=== PATIENT | female | born 1990 | race Caucasian/White ===

== ENCOUNTER 2018-11-04 12:56 | Emergency (ER) | payer OTHER, SELFPAY ==
[2018-11-04 12:59] VITALS: BP 126/80; PULSE 73; RESP 14; TEMP 36.6; O2SAT 99
[2018-11-04 14:38] VITALS: BP 112/69; PULSE 64; RESP 14; O2SAT 100
--- NOTE | 2018-11-04 14:48 | DI.US.S_ITS ---
PROCEDURE: US RENAL COMPLETE INDICATIONS: BILATERAL FLANK PAIN TECHNIQUE: Real-time scanning was performed of the kidneys and bladder, with image documentation. COMPARISON: None. FINDINGS: Kidneys: Kidneys are normal in size. Right kidney measures 10.8 cm long; left kidney measures 9.4 cm long. Right renal cortical thickness is 1.9 cm; left renal cortical thickness is 1.8 cm. Renal cortical echotexture is normal. No hydronephrosis or shadowing nephrolithiasis. No suspicious solid mass lesions. Bladder: Pre-void bladder volume is 405 mL. Post-void residual is 0 mL. Pre-void images demonstrate no intraluminal masses or stones. On pre-void images, the bilateral ureteral jets are noted with color Doppler interrogation. (Of note, ureteral jets may not be detectable in up to 25% of cases due to insufficient differences in specific gravity between ureteral and bladder urine). Miscellaneous: No free pelvic fluid. IMPRESSION: Unremarkable renal sonogram. No hydronephrosis or shadowing renal calculi. The need for further evaluation utilizing noncontrast CT of the abdomen and pelvis may determine clinically. Dictated by: Zbigniew Lee M.D. on 11/04/2018 at 14:51 Approved by: Zbigniew Lee M.D. on 11/04/2018 at 14:52
[2018-11-04 15:05] LABS: Add Manual Diff / Slide Review NO; Basophils Absolute Auto 100 /uL (0-100); Basophils Percent Auto 0.8 % (0-2); Eosinophils Absolute Auto 100 /uL (0-450); Hematocrit 37.8 % (36-46); Hemoglobin 12.6 g/dL (12.0-16.0); Lymphocytes Absolute Auto 2100 /uL (1100-4500); Lymphocytes Percent Auto 25.4 % (25-40); Mean Corpuscular HGB Conc 33.3 % (30-36); Monocytes Absolute Auto 700 /uL (0-900); Monocytes Percent Auto 8.1 % (3-14); Neutrophils Absolute Auto 5400 /uL (1500-7000); Neutrophils Percent Auto 64.7 % (50-75); Platelet Count 251 X10^3/uL (150-400); Red Blood Cell Count 4.07 X10^6/uL (4.0-5.2); Red Cell Distribution Width 12.6 % (11.6-14.8); White Blood Cell Count 8.3 X10^3/uL (4.5-11.0)
[2018-11-04] MEDS: SODIUM CHLORIDE 0.9% 1,000 ML 1000 ML IV (15:05)
[2018-11-04] MEDS: KETOROLAC 60 MG/2 ML VIAL 30 MG IV (15:05)
--- NOTE | 2018-11-04 15:16 | PC.NURSE ---
Renal ultrasound complete
[2018-11-04 15:24] LABS: BUN Creatinine Ratio 13.3 (6-22); Blood Urea Nitrogen 8 mg/dL (7-17); Calcium 9.2 mg/dL (8.4-10.2); Carbon Dioxide 26 mmol/L (22-32); Chloride 103 mmol/L (98-107); Estimated Glomerular Filt Rate > 60.0 mL/min (>60); Glucose 84 mg/dL (70-100); HEMOLYSIS < 15 (0-50); Potassium 3.9 mmol/L (3.4-5.1); Sodium 137 mmol/L (137-145)
--- NOTE | 2018-11-04 15:37 | ED.ABDPAIN ---
HPI - Abdominal Pain <LESLI Freedman - Last Filed: 11/04/18 21:22> General Chief Complaint: Abdominal Pain Stated Complaint: kidney pain Time Seen by Provider: 11/04/18 14:48 Source: patient Mode of arrival: ambulatory Limitations: no limitations History of Present Illness HPI narrative: Healthy 28-year-old female that is a nonsmoker here for complaint of having flank pain for the last couple of months. She has been seen for this at [facility] a few times and has had 2 CTs over the last month that did show that she had some nonobstructing kidney stones and no other findings. She denies any urinary symptoms. she denies any fevers or chills. She does not have any abdominal pain at this time frame. Although she does state that she has had abdominal pain on and off over the past couple months as well. She is currently waiting a urology referral for further evaluation. She denies any trauma to the abdomen. No other concerns or complaints. she states that she is currently on her menstrual cycle that just started today. Last bowel movement was yesterday and was unremarkable. no other concerns or complaints at this time frame. No stressors or relievers of her symptoms. MD complaint: flank pain Related Data Home Medications Medication Instructions Recorded Confirmed mirtazapine [Remeron] 15 mg PO DAILY 11/04/18 11/04/18 Allergies Allergy/AdvReac Type Severity Reaction Status Date / Time No Known Drug Allergies Allergy Verified 11/04/18 13:03 Review of Systems <LESLI Freedman - Last Filed: 11/04/18 21:22> Constitutional Denies chills, Denies fever(s), Denies lethargy and Denies weakness Eyes Denies change in vision, Denies eye discharge, Denies irritation and Denies loss of vision ENT Ears, Nose, Mouth, and Throat: Denies change in voice, Denies neck pain and Denies sore throat Cardiovascular Denies chest pain, Denies irregular heart rhythm, Denies lightheadedness, Denies palpitations, Denies dyspnea, Denies dyspnea on exertion and Denies orthopnea Respiratory Denies cough, Denies dyspnea, Denies dyspnea on exertion and Denies wheezing Gastrointestinal Gastrointestinal: Denies change in bowel habits, Denies diarrhea, Denies nausea and Denies vomiting Genitourinary Denies hematuria, Reports flank pain, Denies urinary incontinence and Denies urinary urgency Musculoskeletal Denies neck pain Integumentary/Breasts Denies pruritus, Denies erythema, Denies rash and Denies wounds Neurologic Denies confusion, Denies loss of vision and Denies weakness Psychiatric Denies anxiety, Denies confusion, Denies depression, Denies homicidal ideation and Denies suicidal ideation Endocrine Denies palpitations Hematologic/Lymphatic Denies easy bruising Allergic/Immunologic Denies wheezing PFSH <LESLI Freedman - Last Filed: 11/04/18 21:22> Social History Smoking Status: Never smoker Social History Smoking Status: Never smoker Exam <LESLI Freedman - Last Filed: 11/04/18 21:22> Initial Vital Signs Initial Vital Signs: Vital Signs Temperature 97.9 F 11/04/18 12:59 Pulse Rate 73 11/04/18 12:59 Respiratory Rate 14 11/04/18 12:59 Blood Pressure 126/80 11/04/18 12:59 Pulse Oximetry 99 11/04/18 12:59 Const General: cooperative and well developed Nutritional Appearance: well nourished Orientation: alert, awake, oriented x3 and not confused HENMT Mouth: oral mucosae normal and moist mucous membranes Eyes Conjunctivae: conjunctivae normal Sclera: sclerae normal Pupils: PERRL EOM: EOM intact bilaterally Resp Effort & Inspection: normal respiratory effort, able to speak in complete sentences, no respiratory distress and no use of accessory muscles Auscultation: clear to auscultation bilaterally, no rales, no rhonchi and no wheezes Cardio Rate: regular rate Rhythm: regular rhythm Heart Sounds: no click, no gallops, no murmurs and no rubs Pulses: normal peripheral pulses GI Inspection: non-distended Palpation: soft, no hepatosplenomegaly, No guarding, No pulsatile mass and No tender Auscultation: normal bowel sounds General: No CVA tenderness Neuro General: alert, oriented x3, gait normal and no focal motor deficits Speech: speech normal <Erin Rojas DO - Last Filed: 11/07/18 07:19> Initial Vital Signs Initial Vital Signs: Vital Signs Temperature 97.9 F 11/04/18 12:59 Pulse Rate 73 11/04/18 12:59 Respiratory Rate 14 11/04/18 12:59 Blood Pressure 126/80 11/04/18 12:59 Pulse Oximetry 99 11/04/18 12:59 Course <LESLI Freedman - Last Filed: 11/04/18 21:22> Orders Ordered: Discontinued Medications Sodium Chloride (Normal Saline 0.9%) 1,000 mls @ 1,000 mls/hr IV BOLUS ONE Stop: 11/04/18 15:47 Last Infusion: 11/04/18 16:05 Dose: 0 mls/hr Admin: 11/04/18 15:05 Dose: 1,000 mls/hr Ketorolac Tromethamine (Toradol) 30 mg IV NOW ONE Stop: 11/04/18 14:49 Last Admin: 11/04/18 15:05 Dose: 30 mg Ondansetron HCl (Zofran) 4 mg IV NOW ONE Stop: 11/04/18 14:49 Last Admin: 11/04/18 14:55 Dose: Not Given Vital Signs - 8 hr 11/04/18 14:38 11/04/18 16:05 Pulse Rate 64 66 Respiratory Rate 14 14 Blood Pressure [Left Arm] 112/69 121/74 Pulse Oximetry 100 100 <Erin Rojas DO - Last Filed: 11/07/18 07:19> Orders Ordered: Discontinued Medications Sodium Chloride (Normal Saline 0.9%) 1,000 mls @ 1,000 mls/hr IV BOLUS ONE Stop: 11/04/18 15:47 Last Infusion: 11/04/18 16:05 Dose: 0 mls/hr Admin: 11/04/18 15:05 Dose: 1,000 mls/hr Ketorolac Tromethamine (Toradol) 30 mg IV NOW ONE Stop: 11/04/18 14:49 Last Admin: 11/04/18 15:05 Dose: 30 mg Ondansetron HCl (Zofran) 4 mg IV NOW ONE Stop: 11/04/18 14:49 Last Admin: 11/04/18 14:55 Dose: Not Given Vital Signs - 8 hr 11/04/18 14:38 11/04/18 16:05 Pulse Rate 64 66 Respiratory Rate 14 14 Blood Pressure [Left Arm] 112/69 121/74 Pulse Oximetry 100 100 MDM - Abdominal Pain <LESLI Freedman - Last Filed: 11/04/18 21:22> Lab Data Result diagrams: 11/04/18 14:55 11/04/18 14:55 Lab Results 11/04/18 11/04/18 Range/Units 14:55 14:55 WBC 8.3 (4.5-11.0) X10^3/uL RBC 4.07 (4.0-5.2) X10^6/uL Hgb 12.6 (12.0-16.0) g/dL Hct 37.8 (36-46) % MCV 93.0 (80-100) fL MCH 31.0 (26-34) PG MCHC 33.3 (30-36) % RDW 12.6 (11.6-14.8) % Plt Count 251 (150-400) X10^3/uL Neut % (Auto) 64.7 (50-75) % Lymph % (Auto) 25.4 (25-40) % Butts % (Auto) 8.1 (3-14) % Eos % (Auto) 1.0 L (2-4) % Baso % (Auto) 0.8 (0-2) % Neut # (Auto) 5400 (0720-0804) /uL Lymph # (Auto) 2100 (8319-4774) /uL Butts # (Auto) 700 (0-900) /uL Eos # (Auto) 100 (0-450) /uL Baso # (Auto) 100 (0-100) /uL Sodium 137 (137-145) mmol/L Potassium 3.9 (3.4-5.1) mmol/L Chloride 103 (98-107) mmol/L Carbon Dioxide 26 (22-32) mmol/L BUN 8 (7-17) mg/dL Creatinine 0.60 (0.52-1.04) mg/dL Estimated GFR > 60.0 (>60) mL/min BUN/Creatinine Ratio 13.3 (6-22) Glucose 84 (70-100) mg/dL Calcium 9.2 (8.4-10.2) mg/dL Point of care testing: Point of Care Testing Test Results Negative Urine Dip Bedside Urine Glucose Negative Bedside Urine Bilirubin - Negative Bedside Urine Ketone - Negative Urine Specific [place] 1.020 Bedside Urine Occult Blood + Bedside Urine pH 5.5 Bedside Urine Protein - Negative Bedside Urine Urobilinogen - Negative Bedside Urine Nitrite - Negative Bedside Urine Leukocytes - Negative Esterase Imaging Data US - abdomen: Radiologist's impression: [address] [id number] Ultrasound Report Signed Patient: Martina Burrell [facility]#: [id number] : 1990Acct:[id number] Age/Sex: 28 / FDate of Service: 11/04/18 Loc: ED Accession Number: [id number] Procedure: US renal complete Ordering Provider: Erin oRjas D.O. PROCEDURE: US RENAL COMPLETE INDICATIONS: BILATERAL FLANK PAIN TECHNIQUE: Real-time scanning was performed of the kidneys and bladder, with image documentation. COMPARISON: None. FINDINGS: Kidneys: Kidneys are normal in size. Right kidney measures 10.8 cm long; left kidney measures 9.4 cm long. Right renal cortical thickness is 1.9 cm; left renal cortical thickness is 1.8 cm. Renal cortical echotexture is normal. No hydronephrosis or shadowing nephrolithiasis. No suspicious solid mass lesions. Bladder: Pre-void bladder volume is 405 mL. Post-void residual is 0 mL. Pre-void images demonstrate no intraluminal masses or stones. On pre-void images, the bilateral ureteral jets are noted with color Doppler interrogation. (Of note, ureteral jets may not be detectable in up to 25% of cases due to insufficient differences in specific gravity between ureteral and bladder urine). Miscellaneous: No free pelvic fluid. IMPRESSION: Unremarkable renal sonogram. No hydronephrosis or shadowing renal calculi. The need for further evaluation utilizing noncontrast CT of the abdomen and pelvis may determine clinically. Dictated by: Zbigniew Lee M.D. on 11/04/2018 at 14:51 Approved by: Zbigniew Lee M.D. on 11/04/2018 at 14:52 [facility] Narrative Medical decision making narrative: CBC was obtained was unremarkable. chemistry panel was obtained was unremarkable. renal ultrasound was obtained and was was negative for hydronephrosis no renal calculi are seen. Urinalysis was negative for urinary tract infection and also for . Urine does show some occult blood but most likely is due to her current menstrual cycle. Will have her follow up with her referral to Urology follow-up with primary care provider next few days. If she is unable to obtain referral to Urology she may contact the [facility] urology for referral. For any worsening symptoms return to the emergency room. Differential for discomfort is a muscle skeletal pain. <Erin Cyndy Rojas, DO - Last Filed: 11/07/18 07:19> Lab Data Lab Results 11/04/18 11/04/18 Range/Units 14:55 14:55 WBC 8.3 (4.5-11.0) X10^3/uL RBC 4.07 (4.0-5.2) X10^6/uL Hgb 12.6 (12.0-16.0) g/dL Hct 37.8 (36-46) % MCV 93.0 (80-100) fL MCH 31.0 (26-34) PG MCHC 33.3 (30-36) % RDW 12.6 (11.6-14.8) % Plt Count 251 (150-400) X10^3/uL Neut % (Auto) 64.7 (50-75) % Lymph % (Auto) 25.4 (25-40) % Butts % (Auto) 8.1 (3-14) % Eos % (Auto) 1.0 L (2-4) % Baso % (Auto) 0.8 (0-2) % Neut # (Auto) 5400 (7562-8664) /uL Lymph # (Auto) 2100 (3065-4500) /uL Butts # (Auto) 700 (0-900) /uL Eos # (Auto) 100 (0-450) /uL Baso # (Auto) 100 (0-100) /uL Sodium 137 (137-145) mmol/L Potassium 3.9 (3.4-5.1) mmol/L Chloride 103 (98-107) mmol/L Carbon Dioxide 26 (22-32) mmol/L BUN 8 (7-17) mg/dL Creatinine 0.60 (0.52-1.04) mg/dL Estimated GFR > 60.0 (>60) mL/min BUN/Creatinine Ratio 13.3 (6-22) Glucose 84 (70-100) mg/dL Calcium 9.2 (8.4-10.2) mg/dL Point of care testing: Point of Care Testing Test Results Negative Urine Dip Bedside Urine Glucose Negative Bedside Urine Bilirubin - Negative Bedside Urine Ketone - Negative Urine Specific [place] 1.020 Bedside Urine Occult Blood + Bedside Urine pH 5.5 Bedside Urine Protein - Negative Bedside Urine Urobilinogen - Negative Bedside Urine Nitrite - Negative Bedside Urine Leukocytes - Negative Esterase Discharge Plan Departure Patient Disposition: Home Clinical Impression: Bilateral flank pain Discharge Date/Time: 11/04/18 16:40 Interventions: ED Discharge Assessment Last Done: 11/04/18 16:40 Instructions: DI for Flank Pain Activity Restrictions/Additional Instructions: Laboratory results today were unremarkable. ultrasound was negative for signs of a kidney stone. Urinalysis was negative for urinary tract infection. Follow up with Urology as scheduled. If having difficulty in followup Urology may contact [facility] urology to set up appointment. Follow up with primary care provider. Use [id number] Tylenol as needed for any discomfort. Return emergency room for any worsening symptoms. Prescriptions: No Action mirtazapine [Remeron] 15 mg Tablet 15 mg PO DAILY RF: 0 Referrals: [facility] [Provider Group] <Erin Rojas DO - Last Filed: 11/07/18 07:19> Cosign ED Attending Cosignature Attestation: I was immediately available in the department for consultation. This documentation has been reviewed and I agree with assessment and plan. Supervised by Erin Rojas DO
[2018-11-04 16:05] VITALS: BP 121/74; PULSE 66; RESP 14; O2SAT 100
--- NOTE | 2018-11-04 16:30 | ED_ITS ---
HPI - Abdominal Pain <LESLI Freedman - Last Filed: 11/04/18 21:22> General Chief Complaint: Abdominal Pain Stated Complaint: kidney pain Time Seen by Provider: 11/04/18 14:48 Source: patient Mode of arrival: ambulatory Limitations: no limitations History of Present Illness HPI narrative: Healthy 28-year-old female that is a nonsmoker here for complaint of having flank pain for the last couple of months. She has been seen for this at [facility] a few times and has had 2 CTs over the last month that did show that she had some nonobstructing kidney stones and no other findings. She denies any urinary symptoms. she denies any fevers or chills. She does not have any abdominal pain at this time frame. Although she does state that she has had abdominal pain on and off over the past couple months as well. She is currently waiting a urology referral for further evaluation. She denies any trauma to the abdomen. No other concerns or complaints. she states that she is currently on her menstrual cycle that just started today. Last bowel movement was yesterday and was unremarkable. no other concerns or complaints at this time frame. No stressors or relievers of her symptoms. MD complaint: flank pain Related Data Home Medications Medication Instructions Recorded Confirmed mirtazapine [Remeron] 15 mg PO DAILY 11/04/18 11/04/18 Allergies Allergy/AdvReac Type Severity Reaction Status Date / Time No Known Drug Allergies Allergy Verified 11/04/18 13:03 Review of Systems <LESLI Freedman - Last Filed: 11/04/18 21:22> Constitutional Denies chills, Denies fever(s), Denies lethargy and Denies weakness Eyes Denies change in vision, Denies eye discharge, Denies irritation and Denies loss of vision ENT Ears, Nose, Mouth, and Throat: Denies change in voice, Denies neck pain and Denies sore throat Cardiovascular Denies chest pain, Denies irregular heart rhythm, Denies lightheadedness, Denies palpitations, Denies dyspnea, Denies dyspnea on exertion and Denies orthopnea Respiratory Denies cough, Denies dyspnea, Denies dyspnea on exertion and Denies wheezing Gastrointestinal Gastrointestinal: Denies change in bowel habits, Denies diarrhea, Denies nausea and Denies vomiting Genitourinary Denies hematuria, Reports flank pain, Denies urinary incontinence and Denies urinary urgency Musculoskeletal Denies neck pain Integumentary/Breasts Denies pruritus, Denies erythema, Denies rash and Denies wounds Neurologic Denies confusion, Denies loss of vision and Denies weakness Psychiatric Denies anxiety, Denies confusion, Denies depression, Denies homicidal ideation and Denies suicidal ideation Endocrine Denies palpitations Hematologic/Lymphatic Denies easy bruising Allergic/Immunologic Denies wheezing PFSH <LESLI Freedman - Last Filed: 11/04/18 21:22> Social History Smoking Status: Never smoker Social History Smoking Status: Never smoker Exam <LESLI Freedman - Last Filed: 11/04/18 21:22> Initial Vital Signs Initial Vital Signs: Vital Signs Temperature 97.9 F 11/04/18 12:59 Pulse Rate 73 11/04/18 12:59 Respiratory Rate 14 11/04/18 12:59 Blood Pressure 126/80 11/04/18 12:59 Pulse Oximetry 99 11/04/18 12:59 Const General: cooperative and well developed Nutritional Appearance: well nourished Orientation: alert, awake, oriented x3 and not confused HENMT Mouth: oral mucosae normal and moist mucous membranes Eyes Conjunctivae: conjunctivae normal Sclera: sclerae normal Pupils: PERRL EOM: EOM intact bilaterally Resp Effort & Inspection: normal respiratory effort, able to speak in complete sentences, no respiratory distress and no use of accessory muscles Auscultation: clear to auscultation bilaterally, no rales, no rhonchi and no wheezes Cardio Rate: regular rate Rhythm: regular rhythm Heart Sounds: no click, no gallops, no murmurs and no rubs Pulses: normal peripheral pulses GI Inspection: non-distended Palpation: soft, no hepatosplenomegaly, No guarding, No pulsatile mass and No tender Auscultation: normal bowel sounds General: No CVA tenderness Neuro General: alert, oriented x3, gait normal and no focal motor deficits Speech: speech normal <Erin Rojas DO - Last Filed: 11/07/18 07:19> Initial Vital Signs Initial Vital Signs: Vital Signs Temperature 97.9 F 11/04/18 12:59 Pulse Rate 73 11/04/18 12:59 Respiratory Rate 14 11/04/18 12:59 Blood Pressure 126/80 11/04/18 12:59 Pulse Oximetry 99 11/04/18 12:59 Course <LESLI Freedman - Last Filed: 11/04/18 21:22> Orders Ordered: Discontinued Medications Sodium Chloride (Normal Saline 0.9%) 1,000 mls @ 1,000 mls/hr IV BOLUS ONE Stop: 11/04/18 15:47 Last Infusion: 11/04/18 16:05 Dose: 0 mls/hr Admin: 11/04/18 15:05 Dose: 1,000 mls/hr Ketorolac Tromethamine (Toradol) 30 mg IV NOW ONE Stop: 11/04/18 14:49 Last Admin: 11/04/18 15:05 Dose: 30 mg Ondansetron HCl (Zofran) 4 mg IV NOW ONE Stop: 11/04/18 14:49 Last Admin: 11/04/18 14:55 Dose: Not Given Vital Signs - 8 hr 11/04/18 14:38 11/04/18 16:05 Pulse Rate 64 66 Respiratory Rate 14 14 Blood Pressure [Left Arm] 112/69 121/74 Pulse Oximetry 100 100 <Erin Rojas DO - Last Filed: 11/07/18 07:19> Orders Ordered: Discontinued Medications Sodium Chloride (Normal Saline 0.9%) 1,000 mls @ 1,000 mls/hr IV BOLUS ONE Stop: 11/04/18 15:47 Last Infusion: 11/04/18 16:05 Dose: 0 mls/hr Admin: 11/04/18 15:05 Dose: 1,000 mls/hr Ketorolac Tromethamine (Toradol) 30 mg IV NOW ONE Stop: 11/04/18 14:49 Last Admin: 11/04/18 15:05 Dose: 30 mg Ondansetron HCl (Zofran) 4 mg IV NOW ONE Stop: 11/04/18 14:49 Last Admin: 11/04/18 14:55 Dose: Not Given Vital Signs - 8 hr 11/04/18 14:38 11/04/18 16:05 Pulse Rate 64 66 Respiratory Rate 14 14 Blood Pressure [Left Arm] 112/69 121/74 Pulse Oximetry 100 100 MDM - Abdominal Pain <LESLI Freedman - Last Filed: 11/04/18 21:22> Lab Data Result diagrams: 11/04/18 14:55 11/04/18 14:55 Lab Results 11/04/18 11/04/18 Range/Units 14:55 14:55 WBC 8.3 (4.5-11.0) X10^3/uL RBC 4.07 (4.0-5.2) X10^6/uL Hgb 12.6 (12.0-16.0) g/dL Hct 37.8 (36-46) % MCV 93.0 (80-100) fL MCH 31.0 (26-34) PG MCHC 33.3 (30-36) % RDW 12.6 (11.6-14.8) % Plt Count 251 (150-400) X10^3/uL Neut % (Auto) 64.7 (50-75) % Lymph % (Auto) 25.4 (25-40) % [place] % (Auto) 8.1 (3-14) % Eos % (Auto) 1.0 L (2-4) % Baso % (Auto) 0.8 (0-2) % Neut # (Auto) 5400 (5636-2891) /uL Lymph # (Auto) 2100 (3202-3328) /uL Titus # (Auto) 700 (0-900) /uL Eos # (Auto) 100 (0-450) /uL Baso # (Auto) 100 (0-100) /uL Sodium 137 (137-145) mmol/L Potassium 3.9 (3.4-5.1) mmol/L Chloride 103 (98-107) mmol/L Carbon Dioxide 26 (22-32) mmol/L BUN 8 (7-17) mg/dL Creatinine 0.60 (0.52-1.04) mg/dL Estimated GFR > 60.0 (>60) mL/min BUN/Creatinine Ratio 13.3 (6-22) Glucose 84 (70-100) mg/dL Calcium 9.2 (8.4-10.2) mg/dL Point of care testing: Point of Care Testing Test Results Negative Urine Dip Bedside Urine Glucose Negative Bedside Urine Bilirubin - Negative Bedside Urine Ketone - Negative Urine Specific [place] 1.020 Bedside Urine Occult Blood + Bedside Urine pH 5.5 Bedside Urine Protein - Negative Bedside Urine Urobilinogen - Negative Bedside Urine Nitrite - Negative Bedside Urine Leukocytes - Negative Esterase Imaging Data US - abdomen: Radiologist's impression: [address] [address] Ultrasound Report Signed Patient: Martina Burrell [facility]#: [id number] : 1990Acct:[id number] Age/Sex: 28 / FDate of Service: 11/04/18 Loc: ED Accession Number: [id number] Procedure: US renal complete Ordering Provider: Erin Rojas D.O. PROCEDURE: US RENAL COMPLETE INDICATIONS: BILATERAL FLANK PAIN TECHNIQUE: Real-time scanning was performed of the kidneys and bladder, with image documentation. COMPARISON: None. FINDINGS: Kidneys: Kidneys are normal in size. Right kidney measures 10.8 cm long; left kidney measures 9.4 cm long. Right renal cortical thickness is 1.9 cm; left renal cortical thickness is 1.8 cm. Renal cortical echotexture is normal. No hydronephrosis or shadowing nephrolithiasis. No suspicious solid mass lesions. Bladder: Pre-void bladder volume is 405 mL. Post-void residual is 0 mL. Pre- void images demonstrate no intraluminal masses or stones. On pre-void images, the bilateral ureteral jets are noted with color Doppler interrogation. (Of note, ureteral jets may not be detectable in up to 25% of cases due to insufficient differences in specific gravity between ureteral and bladder urine). Miscellaneous: No free pelvic fluid. IMPRESSION: Unremarkable renal sonogram. No hydronephrosis or shadowing renal calculi. The need for further evaluation utilizing noncontrast CT of the abdomen and pelvis may determine clinically. Dictated by: Zbigniew Lee M.D. on 11/04/2018 at 14:51 Approved by: Zbigniew Lee M.D. on 11/04/2018 at 14:52 [facility] [place] Narrative Medical decision making narrative: CBC was obtained was unremarkable. chemistry panel was obtained was unremarkable. renal ultrasound was obtained and was was negative for hydronephrosis no renal calculi are seen. Urinalysis was negative for urinary tract infection and also for . Urine does show some occult blood but most likely is due to her current menstrual cycle. Will have her follow up with her referral to Urology follow-up with primary care provider next few days. If she is unable to obtain referral to Urology she may contact the [facility] urology for referral. For any worsening symptoms retur n to the emergency room. Differential for discomfort is a muscle skeletal pain. <Erin Cyndy Rojas, DO - Last Filed: 11/07/18 07:19> Lab Data Lab Results 11/04/18 11/04/18 Range/Units 14:55 14:55 WBC 8.3 (4.5-11.0) X10^3/uL RBC 4.07 (4.0-5.2) X10^6/uL Hgb 12.6 (12.0-16.0) g/dL Hct 37.8 (36-46) % MCV 93.0 (80-100) fL MCH 31.0 (26-34) PG MCHC 33.3 (30-36) % RDW 12.6 (11.6-14.8) % Plt Count 251 (150-400) X10^3/uL Neut % (Auto) 64.7 (50-75) % Lymph % (Auto) 25.4 (25-40) % [place] % (Auto) 8.1 (3-14) % Eos % (Auto) 1.0 L (2-4) % Baso % (Auto) 0.8 (0-2) % Neut # (Auto) 5400 (1431-3346) /uL Lymph # (Auto) 2100 (5326-0505) /uL [place] # (Auto) 700 (0-900) /uL Eos # (Auto) 100 (0-450) /uL Baso # (Auto) 100 (0-100) /uL Sodium 137 (137-145) mmol/L Potassium 3.9 (3.4-5.1) mmol/L Chloride 103 (98-107) mmol/L Carbon Dioxide 26 (22-32) mmol/L BUN 8 (7-17) mg/dL Creatinine 0.60 (0.52-1.04) mg/dL Estimated GFR > 60.0 (>60) mL/min BUN/Creatinine Ratio 13.3 (6-22) Glucose 84 (70-100) mg/dL Calcium 9.2 (8.4-10.2) mg/dL Point of care testing: Point of Care Testing Test Results Negative Urine Dip Bedside Urine Glucose Negative Bedside Urine Bilirubin - Negative Bedside Urine Ketone - Negative Urine Specific [place] 1.020 Bedside Urine Occult Blood + Bedside Urine pH 5.5 Bedside Urine Protein - Negative Bedside Urine Urobilinogen - Negative Bedside Urine Nitrite - Negative Bedside Urine Leukocytes - Negative Esterase Discharge Plan Departure Patient Disposition: Home Clinical Impression: Bilateral flank pain Discharge Date/Time: 11/04/18 16:40 Interventions: ED Discharge Assessment Last Done: 11/04/18 16:40 Instructions: DI for Flank Pain Activity Restrictions/Additional Instructions: Laboratory results today were unremarkable. ultrasound was negative for signs of a kidney stone. Urinalysis was negative for urinary tract infection. Follow up with Urology as scheduled. If having difficulty in followup Urology may contact [facility] urology to set up appointment. Follow up with primary care provider. Use [id number] Tylenol as needed for any discomfort. Return emergency room for any worsening symptoms. Prescriptions: No Action mirtazapine [Remeron] 15 mg Tablet 15 mg PO DAILY RF: 0 Referrals: [facility] [Provider Group] <Erin Rojas DO - Last Filed: 11/07/18 07:19> Cosign ED Attending Cosignature Attestation: I was immediately available in the department for consultation. This documentation has been reviewed and I agree with assessment and plan. Supervised by Erin Rojas DO
== END 2018-11-04 16:40 | disposition home or self-care (01) ==
PROVIDERS: Emergency Medicine; Emergency Provider Nurse Practitioner Family
DX: R10.9 Unspecified abdominal pain (principal)
CPT/HCPCS: 36591; 76770; 80048; 81003; 81025; 85025; 96361; 96374; 99283; 99284; J1885